=== PATIENT | female | born 1990 | race Caucasian/White ===

== ENCOUNTER 2018-06-16 06:14 | Inpatient (IN) | payer OTHER ==
[2018-06-16] MEDS ORDERED: NS 1,000 ML IV ONE (06:35)
[2018-06-16] MEDS ORDERED: fentaNYL 100 MCG/2 ML INJ IVP ONE ×2 (06:35→17:30)
--- NOTE | 2018-06-16 06:41 | EDPHY ---
H & P Stated Complaint: RLQ PAIN SINCE 10 P.M. - Personal History LMP (Females 10-55): 8-14 Days Ago Current Tetanus/Diphtheria Vaccine: No Current Tetanus Diphtheria and Acellular Pertussis (TDAP): No - Medical/Surgical History Hx Asthma: No Hx Chronic Respiratory Disease: No Hx Diabetes: No Hx Cardiac Disease: No Hx Renal Disease: No Hx Cirrhosis: No Hx Alcoholism: No Hx HIV/AIDS: No Hx Splenectomy or Spleen Trauma: No Other PMH: ORTHO SURGERY - Social History Smoking Status: Never smoked Time Seen by Provider: 06/16/18 06:26 HPI/ROS: Chief Complaint: Abdominal pain HPI: 28-year-old woman presenting with right lower abdominal pain. Patient states that about 10:00 a.m. Last night she has had gradual onset of central abdominal pain. Pain is been getting progressively worse over the night and has migrated to the right lower quadrant. She has had some nausea but no vomiting. Is feeling constipated but did have a bowel movement this morning. No history of abdominal surgeries in the past no urinary urgency and frequency. Pain is about a 7/10 right now. At worst is a 9/10. Is worse when going over bumps or walking. Last menstrual cycle was 2 weeks ago and was normal. No back pain. No abnormal vaginal discharge or bleeding. Patient states she cannot be . ROS: 10 systems were reviewed and were negative except those elements noted in the HPI. PMH: Denies Social History: No smoking, no alcohol, no recreational drug use Family History: non-contributory Physical Exam: Gen: Awake, Alert, No Distress HEENT: Nose: no rhinorrhea Eyes: PERRLA, EOMI Mouth: Moist mucosa Neck: Supple, no JVD Chest: nontender, lungs clear to auscultation Heart: S1, S2 normal, no murmur Abd: Soft, right lower quadrant tenderness with a positive Rovsing sign, no rebound, moderate voluntary guarding Back: no CVA tenderness, no midline tenderness Ext: no edema, non-tender Skin: no rash Neuro: CN II-XII intact, Sensation grossly intact, Strength 5/5 in bilateral upper and lower extremities (Ced Guevara) Constitutional: Initial Vital Signs Temperature (C) 36.6 C 06/16/18 06:17 Heart Rate 84 06/16/18 06:17 Respiratory Rate 18 06/16/18 06:17 Blood Pressure 119/81 H 06/16/18 06:17 O2 Sat (%) 97 06/16/18 06:17 O2 Delivery Mode Room Air Allergies/Adverse Reactions: No Known Allergies Allergy (Unverified 06/16/18 06:20) Home Medications: Medication Instructions Recorded Cyanocobalamin [Vitamin B12 1,000 mcg IM Q30D 06/16/18 1000MCG/ML (*)] Herbals/Supplements -Info Only 1 ea PO DAILY 06/16/18 Mupirocin 2% [Bactroban 2% Nasal 1 aaliyah NASAL PRN PRN 06/16/18 (RX)] Vitamin B Complex [Vitamin B 1 each PO DAILY 06/16/18 Complex (OTC)] diphenhydrAMINE [Benadryl 12.5 mg PO HS PRN 06/16/18 12.5MG/5ML Oral Liquid (*)] Medical Decision Making ED Course/Re-evaluation: 28-year-old woman presenting with right lower quadrant pain. Physical exam in history are consistent with acute appendicitis. I have ordered ultrasound laboratory evaluation, analgesia and antiemetics. Patient is signed out to Dr. Hood pending diagnostic test results. (Ced Guevara) Other Provider: I assumed care of the patient at 0700. The patient had a non-diagnostic US. I examined the patient myself at 7:30 p.m.. She has quite a bit of lower abdominal tenderness. It does seem to localize to the right side however she does have some tenderness in the midline. We discussed risks and benefits of CT scanning. The patient will undergo a CT scan for further characterization of her acute abdominal pain. The patient received an additional 4 mg of IV morphine. I did consult with Dr. Serrato from General surgery notifying him that the patient has an acute abdomen. I consulted with Dr. Cayetano Ruvalcaba the radiologist at 8:30 a.m. to review the patient's CT scan which demonstrates volvulus with associated large bowel obstruction. Dr. Serrato has been consulted. The patient will be admitted to his service in anticipation of surgery this morning. He is evaluating the patient in the emergency department at 8:45 a.m.. (Guido Hood) - Data Points Laboratory Results: Laboratory Results 06/16/18 06:40 06/16/18 06:40 Medications Given: Potassium Chloride/Dextrose/Sod Cl (D5w 1/2 Ns W/ 20 Kcl/L) 1,000 mls @ 150 mls /hr IV CONT FELICITY Stop: 12/13/18 09:59 Last Admin: 06/16/18 23:33 Dose: 1,000 mls Discontinued Medications Bacitracin (Bacitracin Syringe) Confirm Administered Dose 50,000 units IRR .STK- MED ONE Stop: 06/16/18 10:57 Last Admin: 06/16/18 18:09 Dose: Not Given Bupivacaine HCl (Sensorcaine 0.5% Vial) Confirm Administered Dose 30 ml .ROUTE .STK-MED ONE Stop: 06/16/18 10:56 Last Admin: 06/16/18 18:09 Dose: Not Given Cefazolin Sodium (Ancef Syringe) Confirm Administered Dose 1 gm .ROUTE .STK-MED ONE Stop: 06/16/18 10:57 Last Admin: 06/16/18 18:10 Dose: Not Given Fentanyl (Sublimaze) 50 mcg IVP EDNOW ONE Stop: 06/16/18 06:36 Last Admin: 06/16/18 06:47 Dose: 50 mcg Fentanyl (Sublimaze) 150 mcg IVP .STK-MED ONE Stop: 06/16/18 17:31 Last Admin: 06/16/18 17:30 Dose: 150 mcg Heparin Sodium (Porcine) (Heparin Sodium) Confirm Administered Dose 1,000 unit .ROUTE .STK-MED ONE Stop: 06/16/18 10:56 Last Admin: 06/16/18 18:10 Dose: Not Given Sodium Chloride (Ns) 1,000 mls @ 0 mls/hr IV ONCE ONE; Wide Open PRN Reason: Protocol Stop: 06/16/18 06:36 Last Admin: 06/16/18 06:48 Dose: 1,000 mls Metronidazole (Flagyl) 250 mg PO Q6HRS FELICITY PRN Reason: Protocol Stop: 06/17/18 00:01 Last Admin: 06/16/18 23:34 Dose: 250 mg Midazolam HCl (Versed) 7 mg IVP .STK-MED ONE Stop: 06/16/18 17:31 Last Admin: 06/16/18 17:30 Dose: 7 mg Morphine Sulfate (Morphine) 4 mg IVP EDNOW ONE Stop: 06/16/18 07:27 Last Admin: 06/16/18 07:32 Dose: 4 mg Neomycin Sulfate (Neomycin Sulfate) 1,000 mg PO Q6HRS FELICITY PRN Reason: Protocol Stop: 06/17/18 00:01 Last Admin: 06/16/18 23:33 Dose: 1,000 mg Ondansetron HCl (Zofran) 4 mg IVP EDNOW ONE Stop: 06/16/18 06:48 Last Admin: 06/16/18 06:47 Dose: 4 mg Polyethylene Glycol/Electrolytes (Gavilyte - G) 2,000 ml PO ONCE ONE Stop: 06/16/18 17:31 Last Admin: 06/16/18 18:21 Dose: 2,000 ml Polymyxin B Sulfate (Polymyxin B Syringe) Confirm Administered Dose 500,000 unit IRR .STK-MED ONE Stop: 06/16/18 10:57 Last Admin: 06/16/18 18:11 Dose: Not Given Departure - Departure Disposition: [facility] Inpatient Acute Clinical Impression: Cecal volvulus Condition: Good
[2018-06-16] MEDS ORDERED: ONDANSETRON 4 MG/2 ML VIAL ONE (06:45)
[2018-06-16] MEDS ORDERED: ONDANSETRON 4 MG/2 ML VIAL IVP ONE (06:47)
[2018-06-16 06:55] LABS: PLATELET COUNT 230 10^3/uL (150-400)
[2018-06-16] MEDS ORDERED: IOPAMIDOL (ISOVUE-300) 100 ML BTL ONE (07:43)
[2018-06-16] MEDS ORDERED: HYDROmorphONE/DILAUDID 1 MG/ML INJ IVP PRN (10:00)
[2018-06-16] MEDS ORDERED: ONDANSETRON 4 MG/2 ML VIAL IVP PRN (10:00)
--- NOTE | 2018-06-16 10:04 | SOAPPROG ---
SOAP Progress Note Assessment/Plan: Assessment: 28-YEAR-OLD FEMALE WITH ABDOMINAL PAIN FOR OVER 12 HR WHICH APPEARS TO BE A CECAL VOLVULUS. SHE IS ADMITTED AT THIS TIME SHE IS HESITANT TO HAVE SURGERY BUT IS CONTEMPLATING HER DECISION RISKS AND OPTIONS FULLY DISCUSSED WITH THE PATIENT AND HER FAMILY AND HER FATHER ABDOMEN IS SOFT BUT DISTENDED AND TENDER WITH DECREASED BOWEL SOUNDS CHEST CLEAR COR REGULAR RHYTHM HEENT NONICTERIC EXTREMITIES FULL RANGE OF MOTION FULL PULSES PLAN: REPAIR OF CECAL VOLVULUS 06/16/18 10:02 Objective: Vital Signs Temp Pulse Resp BP Pulse Ox 36.6 C 84 18 119/81 H 97 06/16/18 06:17 06/16/18 06:17 06/16/18 06:17 06/16/18 06:17 06/16/18 06:17 ICD10 Worksheet Patient Problems: Problems Problem Status Onset Cecal volvulus Acute
[2018-06-16] MEDS ORDERED: BUPIVACAINE 0.5% 30 ML SDV ONE (10:55)
[2018-06-16] MEDS ORDERED: HEPARIN 1000 UNIT/1 ML MDV ONE (10:55)
[2018-06-16] MEDS ORDERED: BACITRACIN 50,000 UNITS/10 ML SYR IRR ONE (10:56)
[2018-06-16] MEDS ORDERED: POLYMYXIN B SULFATE 500,000 UNIT/10 ML SYR IRR ONE (10:56)
[2018-06-16] MEDS ORDERED: ceFAZolin 1 GM/5 ML SYR ONE (10:56)
--- NOTE | 2018-06-16 11:03 | GHP ---
[f rep st] HISTORY AND PHYSICAL DATE OF ADMISSION: 06/16/2018 HISTORY OF PRESENT ILLNESS: 28-year-old female who is admitted at this time with abdominal pain for over [address] scan suggested a cecal volvulus. Her appendix is not visible. Her cecum was dila gurmeet to 13 cm and her left colon is decompressed. White count is normal. She has had some nausea but no emesis and no previous abdominal surgery. PAST HISTORY: Negative for any major medical problems or serious illnesses or surgeries. ALLERGIES: None. MEDICATIONS: None. REVIEW OF SYSTEMS: Negative on a full 10-point review except as related to the HPI. FAMILY HISTORY: Noncontributory. PHYSICAL EXAM: GENERAL: Reveals an alert, healthy 28-year-old female in no acute distress. HEENT: Reveals her to be PERRLA, EOMs intact, nonicteric. NECK: Supple with full range of motion. No adenopathy. No thyromegaly. CHEST: Clear. COR: Regu lar rhythm without murmurs. ABDOMEN: Soft, slightly distended, tender in both lower quadrants with some tympany and decreased bowel sounds. No obvious hernias. EXTREMITIES: Full range of motion. F ull pulses. NEURO: Physiologic and symmetric. PSYCH: Appears to be alert, oriented and cooperativ e. IMPRESSION: Probable cecal volvulus. PLAN AND RECOMMENDATIONS: For her to have surgery for a cecal volvulus. She is somewhat hesitant an d is thinking about her options. Risks and options have been fully discussed with both her and her f zenon and her father. /[id number]/MODL
--- NOTE | 2018-06-16 12:05 | SOAPPROG ---
DONNELL Progress Note Assessment/Plan: Assessment: 28-YEAR-OLD FEMALE WITH ABDOMINAL PAIN FOR OVER 12 HR WHICH APPEARS TO BE A CECAL VOLVULUS. SHE IS ADMITTED AT THIS TIME SHE IS HESITANT TO HAVE SURGERY BUT IS CONTEMPLATING HER DECISION RISKS AND OPTIONS FULLY DISCUSSED WITH THE PATIENT AND HER FAMILY AND HER FATHER ABDOMEN IS SOFT BUT DISTENDED AND TENDER WITH DECREASED BOWEL SOUNDS CHEST CLEAR COR REGULAR RHYTHM HEENT NONICTERIC EXTREMITIES FULL RANGE OF MOTION FULL PULSES PLAN: REPAIR OF CECAL VOLVULUS 06/16/18 10:02 06/16/18 12:04 pt had decided to go to surgery but now wants followup xray so will hold off still distended and tympaniticand tender but she feels better risks and options fully discussed with pt and family Objective: Vital Signs Temp Pulse Resp BP Pulse Ox 36.7 C 74 16 118/84 H 96 06/16/18 11:16 06/16/18 11:16 06/16/18 11:16 06/16/18 11:16 06/16/18 11:16 06/15/18 06/16/18 06/17/18 05:59 05:59 05:59 Intake Total 1050 Balance 1050 ICD10 Worksheet Patient Problems: Problems Problem Status Onset Cecal volvulus Acute
[2018-06-16] MEDS: D5W 1/2 NS W/ 20 KCl/L 1,000 ML IV SCH ×2 (13:30→23:33)
--- NOTE | 2018-06-16 13:32 | SOAPPROG ---
DONNELL Progress Note Assessment/Plan: Assessment: 28-YEAR-OLD FEMALE WITH ABDOMINAL PAIN FOR OVER 12 HR WHICH APPEARS TO BE A CECAL VOLVULUS. SHE IS ADMITTED AT THIS TIME SHE IS HESITANT TO HAVE SURGERY BUT IS CONTEMPLATING HER DECISION RISKS AND OPTIONS FULLY DISCUSSED WITH THE PATIENT AND HER FAMILY AND HER FATHER ABDOMEN IS SOFT BUT DISTENDED AND TENDER WITH DECREASED BOWEL SOUNDS CHEST CLEAR COR REGULAR RHYTHM HEENT NONICTERIC EXTREMITIES FULL RANGE OF MOTION FULL PULSES PLAN: REPAIR OF CECAL VOLVULUS 06/16/18 10:02 06/16/18 12:04 pt had decided to go to surgery but now wants followup xray so will hold off still distended and tympaniticand tender but she feels better risks and options fully discussed with pt and family 06/16/18 13:29 2-way still shows large loop but ? etiology--sigmoid vs cecal abd softer with bs and less tender plan: gastrograffin enema to define Objective: Vital Signs Temp Pulse Resp BP Pulse Ox 36.7 C 74 16 118/84 H 96 06/16/18 11:16 06/16/18 11:16 06/16/18 11:16 06/16/18 11:16 06/16/18 11:16 06/15/18 06/16/18 06/17/18 05:59 05:59 05:59 Intake Total 1050 Balance 1050 ICD10 Worksheet Patient Problems: Problems Problem Status Onset Cecal volvulus Acute
[2018-06-16] MEDS ORDERED: fentaNYL 100 MCG/2 ML INJ ONE (16:30)
[2018-06-16] MEDS ORDERED: MIDAZOLAM 2 MG/2 ML VIAL ONE (16:30)
--- NOTE | 2018-06-16 17:04 | PDPROPOC ---
Sedation Plan of Care Sedation Plan of Care: vital signs stable, mental status noted, patient educated of risks, benefits, alternatives, patient can tolerate sedation ASA Classification: ASA 2 Planned drugs: fentanyl, midazolam Mallampati Score: Class 2 Mallampati Reference Image: Patient passed 3-3-2 rule?: Yes
--- NOTE | 2018-06-16 17:26 | GIREPORT ---
[facility] - Endoscopy Department Patient Name: Georgie Geller Procedure Date: 06/16/2018 4:37 PM Patient Type: Inpatient Attending MD/ ER Physician: Josh Tinajero MD Procedure: Flexible Sigmoidoscopy Indications: Abnormal abdominal x-ray of the GI tract, Abnormal barium enema, Abnorm al CT of the GI tract, Sigmoid Volvulus Providers: Josh Tinajero MD Medicines: Fentanyl 150 micrograms IV, Midazolam 7 mg IV Complications: No immediate complications. Description of Procedure: After obtaining informed consent, the endoscope was passed under direct vision. Throughout the procedure, the patient's blood pressure, pulse, and oxygen saturations were monitored continuously. The Colonoscope was introduced through the anus and advanced to the descending colon. The flexible sigmoidoscopy was accomplished without difficulty. The patient tolerated the procedure well. The quality of the bowel preparation was good. Findings: A volvulus, with viable appearing mucosa, was found in the sigmoid colo n. Decompression of the volvulus was attempted, and partial decompression was achieved. Estimated Blood Loss: Estimated blood loss: none. Post Op Diagnosis: - Volvulus. Partial decompression achieved. - No specimens collected. Recommendation: - Clear liquid diet. - Perform a flat plate and upright abdominal x-ray today. - Further management per surgery, Dr. Serrato. - Thank you for allowing me to participate in the care of your patient. Attending Participation: I personally performed the entire procedure. Josh Tinajero MD Josh Tinajero MD 06/16/2018 5:25:52 PM This report has been signed electronicallyJosh Tinajero MD Number of Addenda: 0 Note Initiated On: 06/16/2018 4:37 PM [email or web address]
[2018-06-16] MEDS ORDERED: MIDAZOLAM 2 MG/2 ML VIAL IVP ONE (17:30)
[2018-06-16] MEDS ORDERED: PEG 3350/NA SULF,BICARB,CL/KCL (GAVILYTE-G) 4000 ML BTL PO ONE (17:30)
[2018-06-16] MEDS: NEOMYCIN SULF 500 MG TAB PO SCH ×2 (18:22→23:33)
[2018-06-16] MEDS: metroNIDAZOLE 250 MG TAB PO SCH ×2 (18:22→23:34)
--- NOTE | 2018-06-16 19:27 | SOAPPROG ---
DONNELL Progress Note Assessment/Plan: Assessment: 28-YEAR-OLD FEMALE WITH ABDOMINAL PAIN FOR OVER 12 HR WHICH APPEARS TO BE A CECAL VOLVULUS. SHE IS ADMITTED AT THIS TIME SHE IS HESITANT TO HAVE SURGERY BUT IS CONTEMPLATING HER DECISION RISKS AND OPTIONS FULLY DISCUSSED WITH THE PATIENT AND HER FAMILY AND HER FATHER ABDOMEN IS SOFT BUT DISTENDED AND TENDER WITH DECREASED BOWEL SOUNDS CHEST CLEAR COR REGULAR RHYTHM HEENT NONICTERIC EXTREMITIES FULL RANGE OF MOTION FULL PULSES PLAN: REPAIR OF CECAL VOLVULUS 06/16/18 10:02 06/16/18 12:04 pt had decided to go to surgery but now wants followup xray so will hold off still distended and tympaniticand tender but she feels better risks and options fully discussed with pt and family 06/16/18 13:[address] still shows large loop but ? etiology--sigmoid vs cecal abd softer with bs and less tender plan: gastrograffin enema to define 06/16/18 19:23 BM REVEALED A SIGMOID VOLVULUS WHICH IS BEEN SUCCESSFULLY EVOLVED BY A COLONOSCOPY BY DR. PHELPS FOLLOWUP 2 WAY SHOWS RESOLUTION OF THE OBSTRUCTION PLAN IS SIGMOID COLECTOMY IN THE A.M. AFTER BOWEL PREP/RISKS AND OPTIONS FULLY DISCUSSED AND SHE WISHES TO PROCEED Objective: Vital Signs Temp Pulse Resp BP Pulse Ox 36.8 C 68 17 112/73 91 L 06/16/18 18:02 06/16/18 18:02 06/16/18 18:02 06/16/18 18:02 06/16/18 18:02 06/15/18 06/16/18 06/17/18 05:59 05:59 05:59 Intake Total 1800 Output Total 1 Balance 1799 ICD10 Worksheet Patient Problems: Problems Problem Status Onset Cecal volvulus Acute
--- NOTE | 2018-06-17 03:59 | GCON ---
[f rep st] CONSULTATION REFERRING PHYSICIAN: Michele Serrato MD CHIEF COMPLAINT: 28-year-old woman with sigmoid volvulus. HISTORY OF PRESENT ILLNESS: I have been asked to see this very pleasant 28-year -old woman in consultation by Dr. Serrato for further management of sigmoid volvulus. Patient has no significant past medical history. She does tend to have a history of constipation. She reports that symptoms of constipation have improved over the last several years with dietary changes. Last evening about 10 p.m., she started having symptoms that felt like constipation, but she started developing right-sided abdominal pain with abdominal distention. She had some associated nausea. Pain became severe. She went to the emergency department. She initially was evaluated with a CT scan that showed a nonspecific fluid collection in the right abdomen. Abdominal x-ray raised question of a cecal volvulus; however, gastrografin enema revealed a sigmoid volvulus. She has no prior history of bowel obstruction or sigmoid volvulus. Asked to see patient for further management of acute sigmoid volvulus. PAST MEDICAL HISTORY: Negative. PAST SURGICAL HISTORY: Remarkable for left ankle surgery and history of uterine polyps. MEDICATIONS: She is on no medications prior to admission. ALLERGIES: She has no known drug allergies. FAMILY HISTORY: Noncontributory as it pertains to chief complaint. SOCIAL HISTORY: Nonsmoker. No significant alcohol use. REVIEW OF SYSTEMS: Negative for 10 systems other than mentioned in HPI. PHYSICAL EXAM: VITAL SIGNS: 101/66, pulse 57, respiratory rate 17, 95% on room air, 36.7. GENERAL: A very pleasant woman in no acute distress. HEENT: Normocephalic, atraumatic. EOMI. Neck is supple. No cervical adenopathy. No thyromegaly. Mucous membranes moist. LUNGS: Clear. CARDIAC: Normal S1, S2 without murmur. ABDOMEN: Distended with high-pitched bowel sounds. Tender to palpation throughout. EXTREMITIES: Without clubbing, cyanosis, edema. NEURO: Nonfocal. SKIN: Warm, dry, intact. PSYCH: Alert and orientated x3 with normal affect. LABORATORY DATA: Hemoglobin 14.4, hematocrit 43. Serum sodium 139, potassium 3.6, chloride 102, CO2 26, BUN of 8, creatinine of 0.9. Abdominal ultrasound showed a complex fluid collection, acute appendicitis could not be excluded. CT scan of the abdomen showed dilated loops within the pelvis, presumably reflecting a cecal volvulus. Abdominal x-ray with colonic dilation as well as mild small bowel abnormality. The plain film more consistent with a sigmoid volvulus. Barium enema/gastrografin enema revealed sigmoid volvulus. IMPRESSION: 28-year-old woman with history of chronic constipation with acute sigmoid volvulus. RECOMMENDATIONS: Proceed with emergent flexible sigmoidoscopy for decompression of sigmoid volvulus. Will follow with you. Thank you for letting me participate in the care of this patient. /[id number]/MODL MTDD
[2018-06-17] MEDS ORDERED: cefOXitin SODIUM 2 GM in NS 100 ML IV ONE (07:23)
--- NOTE | 2018-06-17 07:54 | PDMN ---
Medical Necessity Medical necessity: [facility] [place] bowel sgy: colectomy-partial with or without ostomy ( pending) 4 days-- pt found to have sigmoid volvulus- sgy pending.
--- NOTE | 2018-06-17 08:46 | SOAPPROG ---
SOMICHELLE Progress Note Assessment/Plan: Assessment/plan: 28 y/o F admitted for sigmoid volvulus. Now resolved after sigmoidoscopy. Still recommend surgery for lap sigmoidectomy to prevent future occurrences. We have discussed all risks and options and pt wishes to proceed. Plan: Lap sigmoidectomy this afternoon. S: Feeling better. Finished bowel prep. Several BMs overnight. Passing flatus. O: Alert Afebrile RRR No increased WOB, CTAB Abdomen: soft, nontender, nondistended, normoactive bowel sounds. 06/17/18 08:44 Objective: Vital Signs Temp Pulse Resp BP Pulse Ox 36.7 C 59 L 14 81/47 L 97 06/17/18 08:00 06/17/18 08:00 06/17/18 08:00 06/17/18 08:00 06/17/18 08:00 06/16/18 06/17/18 06/18/18 05:59 05:59 05:59 Intake Total 5000 Output Total 2201 Balance 2799 ICD10 Worksheet Patient Problems: Problems Problem Status Onset Cecal volvulus Acute
--- NOTE | 2018-06-17 08:58 | SOAPPROG ---
SOAP Progress Note Assessment/Plan: Assessment: Sigmoid Volvulus s/p Flexible sigmoidoscopy with decompression. Patient significantly clinically improved. No abdominal pain, distention resolved. Reviewed pre and post x-rays with patient Plan: Surgery planned for today by Dr. Serrato. Partial colectomy. Will sign off, please call with further questions 06/17/18 09:00 Subjective: CC: Abdominal pain. Patient admitted with abdominal pain and sigmoid volvulus s/p flexible sigmoidoscopy with decompression. Clinically improved. Objective: Vital Signs Temp Pulse Resp BP Pulse Ox 36.7 C 59 L 14 81/47 L 97 06/17/18 08:00 06/17/18 08:00 06/17/18 08:00 06/17/18 08:00 06/17/18 08:00 06/16/18 06/17/18 06/18/18 05:59 05:59 05:59 Intake Total 5000 Output Total 2201 Balance 2799 Generic Name Dose Route Start Last Admin Trade Name Freq PRN Reason Stop Dose Admin Hydromorphone HCl 0.2 - 0.4 mg 06/16/18 10:00 Dilaudid IVP 06/26/18 09:59 Q2HRS PRN Pain, Severe Unable to Take PO Potassium Chloride/Dextrose/Sod Cl 1,000 mls @ 150 mls/hr 06/16/18 10:00 23:33 D5w 1/2 Ns W/ 20 Kcl/L IV 12/13/18 09:59 1,000 mls CONT FELICITY Administration Ondansetron HCl 4 mg 06/16/18 10:00 Zofran IVP 12/13/18 09:59 Q4 PRN Nausea/Vomiting, Use 1st Discontinued Medications Generic Name Dose Route Start Last Admin Trade Name Freq PRN Reason Stop Dose Admin Bacitracin Confirm 06/16/18 10:56 06/16/18 18:09 Bacitracin Syringe Administered 06/16/18 10:57 Not Given Dose 50,000 units IRR .STK-MED ONE Bupivacaine HCl Confirm 06/16/18 10:55 06/16/18 18:09 Sensorcaine 0.5% Vial Administered 06/16/18 10:56 Not Given Dose 30 ml .ROUTE .STK-MED ONE Cefazolin Sodium Confirm 06/16/18 10:56 06/16/18 18:10 Ancef Syringe Administered 06/16/18 10:57 Not Given Dose 1 gm .ROUTE .STK-MED ONE Fentanyl 50 mcg 06/16/18 06:35 06/16/18 06:47 Sublimaze IVP 06/16/18 06:36 50 mcg EDNOW ONE Administration Fentanyl Confirm 06/16/18 16:30 Sublimaze Administered 06/16/18 16:31 Dose 400 mcg .ROUTE .STK-MED ONE Fentanyl 150 mcg 06/16/18 17:30 06/16/18 17:30 Sublimaze IVP 06/16/18 17:31 150 mcg .STK-MED ONE Administration Heparin Sodium (Porcine) Confirm 06/16/18 10:55 06/16/18 18:10 Heparin Sodium Administered 06/16/18 10:56 Not Given Dose 1,000 unit .ROUTE .STK-MED ONE Sodium Chloride 1,000 mls @ 0 mls/hr 06/16/18 06:35 06/16/18 06:48 Ns IV 06/16/18 06:36 1,000 mls ONCE ONE Administration Protocol Wide Open Cefoxitin Sodium 2 gm/ Sodium 100 mls @ 200 mls/hr 06/17/18 07:23 Chloride IV 06/17/18 07:52 ONCALL ONE Protocol Iopamidol Confirm 06/16/18 07:43 Isovue-300 Administered 06/16/18 07:44 Dose 100 ml .ROUTE .STK-MED ONE Metronidazole 250 mg 06/16/18 18:00 06/16/18 23:34 Flagyl PO 06/17/18 00:01 250 mg Q6HRS FELICITY Administration Protocol Midazolam HCl Confirm 06/16/18 16:30 Versed Administered 06/16/18 16:31 Dose 8 mg .ROUTE .STK-MED ONE Midazolam HCl 7 mg 06/16/18 17:30 06/16/18 17:30 Versed IVP 06/16/18 17:31 7 mg .STK-MED ONE Administration Morphine Sulfate 4 mg 06/16/18 07:26 06/16/18 07:32 Morphine IVP 06/16/18 07:27 4 mg EDNOW ONE Administration Neomycin Sulfate 1,000 mg 06/16/18 18:00 06/16/18 23:33 Neomycin Sulfate PO 06/17/18 00:01 1,000 mg Q6HRS FELICITY Administration Protocol Ondansetron HCl Confirm 06/16/18 06:45 Zofran Administered 06/16/18 06:46 Dose 4 mg .ROUTE .STK-MED ONE Ondansetron HCl 4 mg 06/16/18 06:47 06/16/18 06:47 Zofran IVP 06/16/18 06:48 4 mg EDNOW ONE Administration Polyethylene Glycol/Electrolytes 2,000 ml 06/16/18 17:30 06/16/18 18:21 Gavilyte - G PO 06/16/18 17:31 2,000 ml ONCE ONE Administration Polymyxin B Sulfate Confirm 06/16/18 10:56 06/16/18 18:11 Polymyxin B Syringe Administered 06/16/18 10:57 Not Given Dose 500,000 unit IRR .STK-MED ONE Physical Exam - Physical Exam General Appearance: alert, no apparent distress Respiratory: lungs clear, normal breath sounds Cardiac/Chest: regular rate, rhythm Abdomen: normal bowel sounds, non-tender, soft Skin: normal color, warm/dry Neuro/Psych: alert, normal mood/affect, oriented x 3 ICD10 Worksheet Patient Problems: Problems Problem Status Onset Cecal volvulus Acute
[2018-06-17] MEDS: D5W 1/2 NS W/ 20 KCl/L 1,000 ML IV SCH (09:14)
--- NOTE | 2018-06-17 09:22 | ASMTCMCOM ---
CM Note CM Note Notes: Patient is s/o sigmoidoscopy with decompression and will go to OR today for lap sigmoidectomy. She lives alone and is normally independent. She is uninsured, and [employer] will screen for Medicaid today. Her brother Carlos is local and supportive. No d/c needs anticipated. Date Signed: 06/17/2018 09:21 AM Electronically Signed By:Liza Manzanares RN
[2018-06-17] MEDS ORDERED: PROPOFOL/EMULSION 500 MG/50 ML BOTTLE IV ONE (11:57)
[2018-06-17] MEDS ORDERED: fentaNYL 100 MCG/2 ML INJ ONE ×2 (11:57→17:01)
[2018-06-17] MEDS ORDERED: DEXAMETHASONE 4 MG/ML VIAL ONE (12:00)
[2018-06-17] MEDS ORDERED: LR 1,000 ML IV ONE (13:04)
[2018-06-17] MEDS ORDERED: HEPARIN 1000 UNIT/1 ML MDV ONE (13:17)
[2018-06-17] MEDS ORDERED: BUPIVACAINE 0.5% 30 ML SDV ONE (13:17)
[2018-06-17] MEDS ORDERED: ceFAZolin 1 GM/5 ML SYR ONE (13:17)
[2018-06-17] MEDS ORDERED: HEPARIN 10,000 UNIT/10 ML MDV (1,000 UNIT/ML) ONE (13:22)
[2018-06-17] MEDS ORDERED: PROPOFOL 200 MG/20 ML VIAL ONE (13:43)
[2018-06-17] MEDS ORDERED: PROMETHAZINE HCL 25 MG/ML INJ IVP PRN (13:54)
[2018-06-17] MEDS ORDERED: fentaNYL 100 MCG/2 ML INJ IVP PRN (13:54)
[2018-06-17] MEDS ORDERED: NALOXONE HCL 0.4 MG/ML INJ IVP PRN ×2 (13:54→16:21)
[2018-06-17] MEDS ORDERED: HYDROmorphONE/DILAUDID 1 MG/ML INJ IVP PRN ×3 (13:54→16:30)
[2018-06-17] MEDS ORDERED: MIDAZOLAM 2 MG/2 ML VIAL IVP ONE (14:19)
--- NOTE | 2018-06-17 14:19 | PDANEPAE ---
ANE History of Present Illness 28 yo for lap sigmoidectomy ANE Past Medical History - Cardiovascular History Hx Hypertension: No Hx Arrhythmias: No Hx Chest Pain: No Hx Coronary Artery / Peripheral Vascular Disease: No Hx CHF / Valvular Disease: No Hx Palpitations: No - Pulmonary History Hx COPD: No Hx Asthma/Reactive Airway Disease: No Hx Recent Upper Respiratory Infection: No Hx Oxygen in Use at Home: No Hx Sleep Apnea: No Sleep Apnea Screening Result - Last Documented: Negative - Endocrine History Hx Diabetes: No ANE Review of Systems Review of Systems: ANE Patient History - Allergies Allergies/Adverse Reactions: No Known Allergies Allergy (Unverified 06/16/18 06:20) - Home Medications Home medications: home medication list seen and reviewed Home Medications: Cyanocobalamin [Vitamin B12 1000MCG/ML (*)] 1,000 mcg IM Q30D 06/16/18 [Last Taken 06/09/18] Herbals/Supplements -Info Only 1 ea PO DAILY 06/16/18 [Last Taken Unknown] Mupirocin 2% [Bactroban 2% Nasal (RX)] 1 aaliyah NASAL PRN PRN 06/16/18 [Last Taken Unknown] Vitamin B Complex [Vitamin B Complex (OTC)] 1 each PO DAILY 06/16/18 [Last Taken Unknown] diphenhydrAMINE [Benadryl 12.5MG/5ML Oral Liquid (*)] 12.5 mg PO HS PRN [Last Taken 06/15/18] - NPO status NPO Status: no food or drink >8 hours NPO Since - Liquids (Date): 06/17/18 NPO Since - Liquids (Time): 06:00 NPO Since - Solids (Date): 06/16/18 NPO Since - Solids (Time): 00:00 - Smoking Hx Smoking Status: Never smoked ANE Labs/Vital Signs - Labs Result Diagrams: 06/16/18 06:40 06/16/18 06:40 - Vital Signs Blood Pressure: 119/77 Heart Rate: 57 Respiratory Rate: 14 O2 Sat (%): 98 Height: 5 ft 5 in Weight: 59.87 kg ANE Physical Exam - Airway Neck exam: FROM Mallampati Score: Class 2 Mouth exam: normal dental/mouth exam - Pulmonary Pulmonary: no respiratory distress - Cardiovascular Cardiovascular: regular rate and rhythym - ASA Status ASA Status: II ANE Anesthesia Plan Anesthesia Plan: general endotracheal anesthesia
[2018-06-17] MEDS ORDERED: ROCURONIUM 100 MG/10 ML VIAL ONE (14:25)
[2018-06-17] MEDS ORDERED: fentaNYL 250 MCG/5 ML INJ ONE (15:35)
[2018-06-17] MEDS ORDERED: SUGAMMADEX SODIUM 200 MG/2 ML VIAL IVP ONE (16:05)
[2018-06-17] MEDS ORDERED: KETOROLAC 30 MG/1 ML SDV ONE (16:06)
[2018-06-17] MEDS ORDERED: ONDANSETRON 4 MG/2 ML VIAL ONE (16:06)
[2018-06-17] MEDS ORDERED: ONDANSETRON 4 MG/2 ML VIAL IVP PRN (16:21)
--- NOTE | 2018-06-17 16:33 | POSTOPPROG ---
Post Op Note Date of Operation: 06/17/18 Surgeon: Michele Serrato Remittance Clerk: Shauna Green Anesthesiologist: Dada Vazquez Anesthesia: GET(General Endotracheal) Pre-op Diagnosis: recent sigmoid volvulus Post-op Diagnosis: same, and redundant sigmoid/descending colon Procedure: lap assisted sigmoid colectomy Findings: redundant colon. no definite scar from twist seen Inf/Abcess present in the surg proc area at time of surgery?: No EBL: Minimal Bowel Protocol: Yes Clean Closure Performed: Yes Specimen(s): sigmoid colon
[2018-06-17] MEDS: fentaNYL 100 MCG/2 ML INJ IVP PRN ×3 (17:03→17:40)
[2018-06-17] MEDS: OXYCODONE/APAP 5/325 TAB PO PRN (21:16)
[2018-06-18] MEDS: KETOROLAC 15 MG/1 ML SDV IVP SCH ×5 (08:39→23:40)
--- NOTE | 2018-06-18 11:16 | SOAPPROG ---
SOAP Progress Note Assessment/Plan: Assessment/Plan: 28 Y F s/p lap assisted sigmoid colectomy for volvulus, POD#1. Doing well. Continue clears. Ambulate. Added toradol. Continue routine post op care. Dispo: likely in next 1-2 days. S: not passing gas yet. some right shoulder/neck stiffness. no n/v. O: alert, nad ncat mmm ctab rrr abd soft, rare BS inc cdi 06/18/18 11:14 Objective: Vital Signs Temp Pulse Resp BP Pulse Ox 36.7 C 64 14 101/64 95 06/18/18 08:00 06/18/18 08:00 06/18/18 08:00 06/18/18 08:00 06/18/18 08:00 06/17/18 06/18/18 06/19/18 05:59 05:59 05:59 Intake Total 5000 1405 Output Total 2201 1260 200 Balance 2799 145 -200 ICD10 Worksheet Patient Problems: Problems Problem Status Onset Cecal volvulus Acute
--- NOTE | 2018-06-18 15:17 | POSTANESTH ---
Post Anesthetic Evaluation Cardiovascular Status: Normal, Stable Respiratory Status: Normal, Stable Level of Consciousness/Mental Status: Can Participate in Eval Pain Control: Adequate, Prn Tx Ordered Nausea/Vomiting Control: Adequate, Prn Tx Ordered Complications Possibly Related to Anesthesia: None Noted
[2018-06-18] MEDS: OXYCODONE/APAP 5/325 TAB PO PRN (21:57)
[2018-06-19] MEDS: KETOROLAC 15 MG/1 ML SDV IVP SCH ×4 (05:09→23:17)
[2018-06-19 09:31] LABS: PLATELET COUNT 219 10^3/uL (150-400)
[2018-06-20 07:57] VITALS: BP 113/88
[2018-06-20] MEDS: KETOROLAC 15 MG/1 ML SDV IVP SCH (09:02)
--- NOTE | 2018-06-20 09:31 | SOAPPROG ---
SOAP Progress Note Assessment/Plan: Assessment/Plan: 28 Y F s/p lap assisted sigmoid colectomy for volvulus, POD#3 Doing well overall. Tolerating a regular diet. Passing flatus. Had one small BM. Pain controlled. Dispo: home today. See with Dr. Palmer. S: Passing gas. Pain controlled. O: Alert Afebrile RRR No increased WOB, CTAB Abdomen: soft, nontender, nondistended, normoactive bowel sounds, incisions cdi. 06/20/18 09:29 Objective: Vital Signs Temp Pulse Resp BP Pulse Ox 36.6 C 72 14 113/88 H 95 06/20/18 07:54 06/20/18 07:54 06/20/18 07:54 06/20/18 07:54 06/20/18 07:54 Laboratory Results 06/19/18 09:20 06/19/18 06/20/18 06/21/18 05:59 05:59 05:59 Intake Total 350 Output Total 700 Balance -350 ICD10 Worksheet Patient Problems: Problems Problem Status Onset Cecal volvulus Acute
--- NOTE | 2018-06-20 10:09 | ASMTCMCOM ---
CM Note CM Note Notes: CASE MANAGEMENT D/C NOTE: Met with pt in her room. Her friend who lives next door to her plans to pick her up at 12:45 to take her home. Pt is D/Cing home independently with no needs. Pt states that her friend is available to help her if needed but she doesn't anticipate needing help. She lives alone and gets around without problem. Date Signed: 06/20/2018 10:09 AM Electronically Signed By:Odalis Langston
--- NOTE | 2018-06-20 10:12 | ASDISCHSUM ---
Discharge Information Plan Status:Home with No Needs Medically Cleared to Leave:06/20/2018 Discharge Date:06/20/2018 CM D/C Disposition:Home, Routine, Self-Care ADT D/C Disposition:Home, Routine, Self-Care Projected Discharge Date:06/20/2018 12:45 PM Transportation at D/C: Discharge Delay Reason: Follow-Up Date:06/20/2018 12:45 PM Discharge Slot: Final Diagnosis: Placement Information Patient Contact Information Contact Name:KYREE Relationship: Address: Work Phone: City: [facility] Phone: State/Zip Code: Email: Financial Information Financial Class:Self-Pay Primary Plan Desc:SP UNINSURED Primary Plan Number:[id number] Secondary Plan Desc: Secondary Plan Number: Assessment Information [facility] CM Progress Note CM Note CM Note Notes: Patient is s/o sigmoidoscopy with decompression and will go to OR today for lap sigmoidectomy. She lives alone and is normally independent. She is uninsured, and [employer] will screen for Medicaid today. Her brother Carlos is local and supportive. No d/c needs anticipated. Date Signed: 06/17/2018 09:21 AM Electronically Signed By:Liza Manzanares RN [facility] CM Progress Note CM Note CM Note Notes: CASE MANAGEMENT D/C NOTE: Met with pt in her room. Her friend who lives next door to her plans to pick her up at 12:45 to take her home. Pt is D/Cing home independently with no needs. Pt states that her friend is available to help her if needed but she doesn't anticipate needing help. She lives alone and gets around without problem. Date Signed: 06/20/2018 10:09 AM Electronically Signed By:Odalis Langston Intervention Information
--- NOTE | 2018-06-26 13:56 | GDS ---
[f rep st] DISCHARGE SUMMARY DISCHARGE DIAGNOSIS: Sigmoid volvulus. SPECIAL TESTS: The patient underwent 2 abdominal x-rays, abdominal CT, abdominal ultrasound, and bar ium enema. PROCEDURES: Flexible sigmoidoscopy by Dr. Tinajero. FINDINGS: Volvulus in the sigmoid colon. The volvulus was partially decompressed. The patient also underwent laparoscopic-assisted sigmoid colectomy. Intraoperative findings: There is no definite scar seen. The patient was found to have redundant colon. HOSPITAL COURSE: This is a 28-year-old healthy female who presented to the emergency department [facility] of increasing abdominal pain over the last [address] scan suggested a cecal volvulus. The patient was later found to have a sigmoid volvulus. All options and risks were discussed with giovanni christina. It was recommended that she undergo surgery for sigmoid colectomy to avoid this happening again i n the future. The patient understood and wished to proceed. The patient was taken to the Operating Room for laparoscopic-assisted sigmoid colectomy. The patient tolerated the procedure well, and there were no complications. Throughout her hospital stay, the quita lambert's vital signs remained stable. Her pain was initially managed with IV pain medication, and she was subsequently transitioned to oral pain medication. The patient began to pass gas on postoperati ve day #2. She had 1 small BM on postoperative day #3. The patient was ultimately discharged home in good condition on postoperative day #3. She was tolera ting a regular diet at this time. She was advised to avoid heavy lifting and soaking in a pool or tu b. She was discharged home with a prescription for Percocet for pain control. She was advised to fo llow up in our office in 2 weeks and to call with any fever, chills, or worsening symptoms. /[id number]/MODL
== END 2018-06-20 12:30 | disposition home or self-care (01) | DRG 330 ==
LOC: F3N 10:06 → F3E 06-19 15:54
PROVIDERS: ADMIT Surgery; ATTEND Surgery
PROC: 0D7N8ZZ Dilation of Sigmoid Colon, Via Natural or Artificial Opening Endoscopic (ICD-10-PCS; 2018-06-16)
PROC: 0DTN4ZZ Resection of Sigmoid Colon, Percutaneous Endoscopic Approach (ICD-10-PCS; principal; 2018-06-17 13:15)
DX: K56.2 Volvulus (principal); K59.00 Constipation, unspecified; Q43.8 Other specified congenital malformations of intestine
CPT/HCPCS: 96374; J0694; J1100; J1644; J1885; J2250; J2270; J2405; J2704; J3010; Q9967